=== PATIENT | female | born 2000 | race American Indian/Alaskan Native ===

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

== ENCOUNTER 2022-04-08 22:37 | Emergency (ER) | payer MEDICAID, OTHER ==
[2022-04-08] MEDS ORDERED: Lidocaine 1% 30 ML SDV INJECT ONE (22:41)
[2022-04-08 23:16] LABS: AMPHETAMINES,URINE NEGATIVE (NEGATIVE); BARBITURATES,URINE NEGATIVE (NEGATIVE); BENZODIAZEPINE,URINE NEGATIVE (NEGATIVE); MDMA (ECSTASY), URINE NEGATIVE (NEGATIVE); METHADONE,URINE NEGATIVE (NEGATIVE); METHAMPHETAMINES,URINE POSITIVE (NEGATIVE); OPIATES,URINE NEGATIVE (NEGATIVE); OXYCODONE,URINE NEGATIVE (NEGATIVE); PHENCYCLIDINE,URINE NEGATIVE (NEGATIVE); TCA,URINE NEGATIVE (NEGATIVE)
[2022-04-08] MEDS ORDERED: Bacitracin Oint 1 GM U/D Packet TOP ONE (23:20)
[2022-04-08 23:33] LABS: ACETAMINOPHEN 0 ug/mL (10-30 (Therapeutic)); ANION GAP 19.6 mEq/L (7-13); CHLORIDE,CL 108 mmol/L (98-107); ESTIMATED GFR > 60; SODIUM,NA 144 mmol/L (136-145)
[2022-04-08 23:46] VITALS: BP 124/70; PULSE 82
== END 2022-04-09 01:04 | disposition home or self-care (01) ==
LOC: DL.ED 22:37
DX: S41.112A Laceration without foreign body of left upper arm, initial encounter (principal); S51.812A Laceration without foreign body of left forearm, initial encounter; F10.10 Alcohol abuse, uncomplicated; F15.90 Other stimulant use, unspecified, uncomplicated; E66.9 Obesity, unspecified; Z68.30 Body mass index [BMI] 30.0-30.9, adult; Z91.09 Other allergy status, other than to drugs and biological substances; X78.1XXA Intentional self-harm by knife, initial encounter
CPT/HCPCS: 12004; 12005; 36415; 80053; 80143; 80179; 80305-QW; 80307; 81001; 81025; 85025; 99283-25; 99284

== ENCOUNTER 2022-06-15 10:07 | Emergency (ER) | payer MEDICAID ==
[2022-06-15 09:54] VITALS: BP 128/113; PULSE 111
[2022-06-15] MEDS ORDERED: Clindamycin HCl 150 MG Cap PO ONE ×2 (10:08→12:30)
[2022-06-15] MEDS ORDERED: Clindamycin HCl 150 MG Cap ONE (12:33)
== END 2022-06-15 12:45 | disposition home or self-care (01) ==
LOC: DL.ED 10:07
DX: S01.81XA Laceration without foreign body of other part of head, initial encounter (principal); S61.419A Laceration without foreign body of unspecified hand, initial encounter; K04.7 Periapical abscess without sinus; F10.10 Alcohol abuse, uncomplicated; E66.9 Obesity, unspecified; Z68.41 Body mass index [BMI] 40.0-44.9, adult; Z91.09 Other allergy status, other than to drugs and biological substances; W18.30XA Fall on same level, unspecified, initial encounter
CPT/HCPCS: 70486; 72125; 81001; 81025; 99284; A9270-GY

== ENCOUNTER 2023-02-12 14:03 | Emergency (ER) | payer MEDICAID ==
[2023-02-12] MEDS ORDERED: Albuterol/Ipratropium 3.0-0.5 MG/3 ML Neb Soln NEB ONE (14:08)
[2023-02-12 14:14] VITALS: BP 148/87; PULSE 106
[2023-02-12] MEDS ORDERED: methylPREDNISolone Sodium Succinate 125 MG/2 ML SDV IM ONE (14:14)
== END 2023-02-12 14:46 | disposition home or self-care (01) ==
LOC: DL.ED 14:03
DX: J45.21 Mild intermittent asthma with (acute) exacerbation (principal); J45.909 Unspecified asthma, uncomplicated; E66.9 Obesity, unspecified; Z86.16 Personal history of COVID-19; Z91.09 Other allergy status, other than to drugs and biological substances; Z68.42 Body mass index [BMI] 45.0-49.9, adult
CPT/HCPCS: 94640; 96372; 99283; 99284-25; J2930; J7620-GY